=== PATIENT | male | born 1965 | race Caucasian/White ===

== ENCOUNTER 2017-01-08 15:42 | Inpatient (IN) | payer OTHER ==
[2017-01-08] MEDS ORDERED: SODIUM CHLORIDE 0.9% 500 ML IV STA (16:15)
--- NOTE | 2017-01-08 16:24 | ED ---
Abdominal Pain HPI - General Chief Complaint: Abdominal Pain Stated Complaint: ABdomnial pain x 2 weeks Time Seen by Provider: 01/08/17 16:05 Source: patient, RN notes reviewed Mode of arrival: ambulatory Limitations: no limitations - History of Present Illness Initial Comments: 51-year-old male presents emergency Department chief complaint of intermittent right lower quadrant abdominal pain for last month. Patient states Merrick getting worse. Patient states he has a history kidney stones and felt similar but states he does not have back pain associated with it. Patient denies any nausea, vomiting diarrhea constipation or dysuria no hematuria. Denies any known fever but states he still hot and cold. Patient states pain does wax and wane he's had no prior abdominal surgeries no groin swelling no scrotal swelling. Patient states he does have some increased pain with movement. But denies any known injury. - Related Data Home Medications Medication Instructions Recorded Confirmed No Known Home Medications [No 01/08/17 01/08/17 Known Home Medications] Allergies Allergy/AdvReac Type Severity Reaction Status Date / Time No Known Allergies Allergy Verified 01/08/17 16:39 Review of Systems ROS Statement: Those systems with pertinent positive or pertinent negative responses have been documented in the HPI. ROS Other: All systems not noted in ROS Statement are negative. Past Medical History Past Medical History: No Reported History History of Any Multi-Drug Resistant Organisms: None Reported Past Surgical History: No Surgical Hx Reported Past Psychological History: No Psychological Hx Reported Smoking Status: Never smoker Past Alcohol Use History: None Reported Past Drug Use History: Marijuana General Exam Limitations: no limitations General appearance: alert, in no apparent distress Head exam: Present: atraumatic, normocephalic, normal inspection Eye exam: Present: normal appearance, PERRL, EOMI. Absent: scleral icterus, conjunctival injection, periorbital swelling Neck exam: Present: normal inspection, full ROM. Absent: tenderness, meningismus, lymphadenopathy Respiratory exam: Present: normal lung sounds bilaterally. Absent: respiratory distress, wheezes, rales, rhonchi, stridor Cardiovascular Exam: Present: regular rate, normal rhythm, normal heart sounds. Absent: systolic murmur, diastolic murmur, rubs, gallop, clicks GI/Abdominal exam: Present: soft, tenderness ([id number] right lower quadrant tenderness), normal bowel sounds. Absent: distended, guarding, rebound , rigid Back exam: Absent: CVA tenderness (R), CVA tenderness (L) Skin exam: Present: warm, dry, intact, normal color. Absent: rash Course Vital Signs 01/08/17 15:59 Temperature 97.0 F L Pulse Rate 100 Respiratory 18 Rate Blood Pressure 119/86 O2 Sat by Pulse 100 Oximetry Medical Decision Making - Lab Data Result diagrams: 01/08/17 16:28 01/08/17 16:28 Lab Results 01/08/17 01/08/17 01/08/17 Range/Units 16:28 16:28 16:28 WBC 10.9 H (3.8-10.6) k/uL RBC 5.30 (4.30-5.90) m/uL Hgb 15.8 (13.0-17.5) gm/dL Hct 48.5 (39.0-53.0) % MCV 91.6 (80.0-100.0) fL MCH 29.9 (25.0-35.0) pg MCHC 32.6 (31.0-37.0) g/dL RDW 14.2 (11.5-15.5) % Plt Count 378 (150-450) k/uL Neutrophils % 74 % Lymphocytes % 20 % Monocytes % 4 % Eosinophils % 1 % Basophils % 0 % Neutrophils # 8.0 H (1.3-7.7) k/uL Lymphocytes # 2.2 (1.0-4.8) k/uL Monocytes # 0.4 (0-1.0) k/uL Eosinophils # 0.1 (0-0.7) k/uL Basophils # 0.1 (0-0.2) k/uL Sodium 143 (137-145) mmol/L Potassium 4.3 (3.5-5.1) mmol/L Chloride 102 (98-107) mmol/L Carbon Dioxide 30 (22-30) mmol/L Anion Gap 11 mmol/L BUN 14 (9-20) mg/dL Creatinine 0.82 (0.66-1.25) mg/dL Est GFR (MDRD) Af Amer >60 (>60 ml/min/1.73 sqM) Est GFR (MDRD) Non-Af >60 (>60 ml/min/1.73 sqM) Glucose 80 (74-99) mg/dL Calcium 9.4 (8.4-10.2) mg/dL Total Bilirubin 1.0 (0.2-1.3) mg/dL AST 30 (17-59) U/L ALT 56 (21-72) U/L Alkaline Phosphatase 78 (38-126) U/L Total Protein 7.8 (6.3-8.2) g/dL Albumin 4.6 (3.5-5.0) g/dL Amylase 36 (30-110) U/L Lipase 236 (23-300) U/L Urine Color Yellow Urine Appearance Clear (Clear) Urine pH 6.0 (5.0-8.0) Ur Specific Ruth 1.012 (1.001-1.035) Urine Protein Negative (Negative) Urine Glucose (UA) Negative (Negative) Urine Ketones Negative (Negative) Urine Blood Negative (Negative) Urine Nitrite Negative (Negative) Urine Bilirubin Negative (Negative) Urine Urobilinogen <2.0 (<2.0) mg/dL Ur Leukocyte Esterase Negative (Negative) Disposition Clinical Impression: Acute appendicitis Disposition: ADMITTED IP TO THIS [facility] Condition: Fair Referrals: Chuy Garza DO [Primary Care Provider] - 1-2 days
[2017-01-08 16:38] LABS: Basophils # (A) 0.1 k/uL (0-0.2); Basophils % (A) 0 %; CH 31.3; CHCM 34.3; Eosinophils # (A) 0.1 k/uL (0-0.7); Eosinophils % (A) 1 %; HCT 48.5 % (39.0-53.0); HGB 15.8 gm/dL (13.0-17.5); Luc # (Auto) 0.16; Luc % (Auto) 1; Lymphocytes # (A) 2.2 k/uL (1.0-4.8); Lymphocytes % (A) 20 %; MCH 29.9 pg (25.0-35.0); MCHC 32.6 g/dL (31.0-37.0); MCV 91.6 fL (80.0-100.0); Mean Platelet Volume 7.4; Monocytes # (A) 0.4 k/uL (0-1.0); Monocytes % (A) 4 %; Neutrophils % (A) 74 %; RDW 14.2 % (11.5-15.5); WBC 10.9 k/uL (3.8-10.6); WBC (Perox) 10.42
[2017-01-08 16:39] LABS: Appearance,Urine Clear (Clear); Bilirubin,Urine Negative (Negative); Glucose,Urine (UA) Negative (Negative); Ketones,Urine Negative (Negative); Leukocyte Esterase,Urine Negative (Negative); Nitrite,Urine Negative (Negative); Protein,Urine Negative (Negative); Specific Gravity,Urine 1.012 (1.001-1.035); UA Billing (MACRO vs. MICRO) CHEM; Urobilinogen,Urine <2.0 mg/dL (<2.0)
[2017-01-08 16:46] LABS: ALT 56 U/L (21-72); AST 30 U/L (17-59); Alkaline Phosphatase 78 U/L (38-126); Amylase 36 U/L (30-110); Anion Gap 11 mmol/L; Blood Urea Nitrogen 14 mg/dL (9-20); Calcium 9.4 mg/dL (8.4-10.2); Carbon Dioxide 30 mmol/L (22-30); Chloride 102 mmol/L (98-107); Glucose 80 mg/dL (74-99); Non-African American GFR(MDRD) >60 (>60 ml/min/1.73 sqM); Potassium 4.3 mmol/L (3.5-5.1); Sodium 143 mmol/L (137-145); Total Protein 7.8 g/dL (6.3-8.2)
--- NOTE | 2017-01-08 17:02 | XR ---
Abdomen HISTORY: Pain Frontal view of the abdomen submitted on 2 images and correlated to prior abdomen 07/02/2013 Lung bases are clear. There is no pneumoperitoneum or bowel obstruction. Phleboliths present within t he pelvis. Difficult to exclude nephrolithiasis. IMPRESSION: Nonspecific bowel gas pattern
[2017-01-08] MEDS ORDERED: RX INFO: IV CONTRAST WAS GIVEN 1 EACH MISC MISCELLANE PRN (17:03)
--- NOTE | 2017-01-08 17:52 | CT ---
EXAMINATION TYPE: CT abdomen pelvis w con DATE OF EXAM: 01/08/2017 COMPARISON: 07/02/2013 HISTORY: Right lower quadrant pain on and off x [address] DLP: 786.00 mGycm Automated exposure control for dose reduction was used. TECHNIQUE: Helical acquisition of images was performed from the lung bases through the pelvis. CONTRAST: Performed without Oral Contrast and with IV Contrast, patient injected with 100 mL of Omnipaque 300. FINDINGS: LUNG BASES: Bibasilar subsegmental atelectasis is present. LIVER/GB: Peripherally enhancing incompletely characterized left hepatic lobe lesion measures 1.2 cm on series 3 image 14. Additional lesions that are too small to accurately characterize are seen withi n segment 4A on series 3 image 18 and series 3 image 21 measuring 4 mm and 5 mm respectively. Other s cattered similar appearing hypoattenuating lesions are seen within segments 5, 6 and 8 that are also too small to accurately characterize. These may represent hepatic cysts. PANCREAS: No significant abnormality is seen. SPLEEN: No significant abnormality is seen. ADRENALS: No significant abnormality is seen. KIDNEYS: Bilateral subcentimeter hypoattenuating lesions are too small to accurately characterize see n in the left lower pole and right midpole. FREE AIR: No free air is visualized. RETROPERITONEAL ADENOPATHY: None visualized REPRODUCTIVE ORGANS: No significant abnormality is seen URINARY BLADDER: No significant abnormality is seen. PELVIC ADENOPATHY: None visualized. OSSEOUS STRUCTURES: Indeterminant lesion is seen within the iliac crest on the left that is favored to be benign as it was present on the prior exam of 07/02/2013.. BOWEL: Extensive phlegmonous changes are seen in the right lower quadrant near the appendix and term inal ileum. Multiple loops of small bowel are acute to one another and thus the appendix is inseparab le. The appendix is thought to be located on series 3 image 52, upper limits of normal in size measur ing 7 mm and hyperemia with extensive periappendiceal fat stranding. Bowel loops appear to be tethere d to one another with separation of the unaffected bowel, enlarged adjacent lymph nodes measuring up to 6 mm, and thickening of the adjacent fascial planes. No associated ileus is seen as is no proximal bowel dilation.. OTHER: IMPRESSION: 1. EXTENSIVE PHLEGMONOUS AND INFLAMMATORY FAT STRANDING IN THE RIGHT LOWER QUADRANT WITH MULTIPLE LOO PS OF HYPEREMIC BOWEL ADHERED TO ONE ANOTHER, ALTHOUGH THE APPENDIX CANNOT BE FROM THE TERM INAL ILEUM AND SURROUNDING ADJACENT BOWEL LOOPS ACUTE APPENDICITIS IS HIGHLY SUSPECTED WITH REACTIVE TERMINAL ILEITIS AND ADJACENT ADENOPATHY NO EVIDENCE OF FOCAL FLUID COLLECTION. 2. NUMEROUS HEPATIC LESIONS THAT ARE INCOMPLETELY CHARACTERIZED. THESE COULD REPRESENT HEMANGIOMAS AN D OR HEPATIC CYST ALTHOUGH FURTHER CHARACTERIZATION WITH ENHANCED DYNAMIC CT OR MR ABDOMEN COULD BE P ERFORMED FOR FURTHER CHARACTERIZATION. FINDINGS WERE DISCUSSED WITH Amadeo Ruvalcaba PA-C by Dr. Gomez at 1744 ON 01/08/2017.
[2017-01-08] MEDS ORDERED: PIPERACILLIN-TAZOBACTAM 3.375 GM in DEXTROSE/WATER 1 50ML.BAG IVPB STA (17:56)
[2017-01-08] MEDS ORDERED: NALOXONE 0.4 MG/ML 1 ML VIAL IV PRN (17:58)
[2017-01-08] MEDS: SODIUM CHLORIDE 0.9% 1,000 ML IV SCH (18:06)
[2017-01-08 20:22] VITALS: BMI 24.2
--- NOTE | 2017-01-08 23:10 | P.GSHP ---
History of Present Illness H&P Date: 01/08/17 Chief Complaint: Right lower quadrant abdominal pain The patient is a 51-year-old gentleman who reports several month history of intermittent abdominal cramps including along the right lower quadrant. He denies any previous colonoscopies. He denies any family history of colon cancer malignancy. No previous abdominal surgeries. He thought he had the stomach flu. His pain had initially started periumbilical and radiated to the right lower quadrant since Sunday now 2-3 days ago. He is sitting comfortably in the hospital room. He denies any personal or family history of Crohn's disease or ulcerative colitis. He denies any blood in the stools. He did obtain a CT of the abdomen and pelvis consistent with inflammatory change of the right lower quadrant and acute appendicitis. - Review of Systems Comment: CONSTITUTIONAL: Denies any fever or chills. Denies recent weight loss or weight gain. HEENT: Denies any trouble with vision, hearing or nosebleeds. No difficulty swallowing. LYMPHATIC: The patient denies any lumps and bumps around the neck. ENDOCRINE: Denies any thyroid disorders. Denies any blood sugar glucose intolerance. RESPIRATORY: Denies pneumonia. Denies any troubles with breathing or dyspnea on exertion. CARDIOVASCULAR: Denies any chest pain, palpitations, or recent heart attacks. He completed a stress test in the last 4-6 months which was normal. GASTROINTESTINAL: Denies heart burn, constipation or bright red blood per rectum. GENITOURINARY: Denies any blood in urine or increased urinary frequency. MUSCULOSKELETAL: Has occasional back pain, stiffness, joint arthritis. NEUROLOGIC: Denies any numbness or tingling along the distal extremities. No seizure disorders or headaches. PSYCHIATRIC: Denies depression or suidical ideation. HEMATOLOGIC: Denies any abnormal bleeding or bruising. BREASTS: Denies any breast lumps, pain or nipple discharge. SKIN: No reports of skin cancer or rash. Past Medical History Past Medical History: No Reported History History of Any Multi-Drug Resistant Organisms: None Reported Past Surgical History: No Surgical Hx Reported Past Anesthesia/Blood Transfusion Reactions: No Reported Reaction Additional Past Anesthesia/Blood Transfusion Reaction / Comment(s): pt never had surgery or been on anesthesia Past Psychological History: No Psychological Hx Reported Smoking Status: Never smoker Past Alcohol Use History: None Reported Past Drug Use History: Marijuana Medications and Allergies Home Medications Medication Instructions Recorded Confirmed Type No Known Home Medications [No 01/08/17 01/08/17 History Known Home Medications] Allergies Allergy/AdvReac Type Severity Reaction Status Date / Time No Known Allergies Allergy Verified 01/08/17 16:39 Surgical - Exam Vital Signs Temp Pulse Resp BP Pulse Ox 97.0 F L 100 18 119/86 100 01/08/17 15:59 01/08/17 15:59 01/08/17 15:59 01/08/17 15:59 01/08/17 15:59 GENERAL: Well developed and in no acute distress. Pleasant. HEENT: No sclera icterus. Extraocular movements grossly intact. Moist buccal mucosa. Head is atraumatic, normocephalic. Hears conversational speech. No nasal drainage. NECK: Supple without lymphadenopathy. No JV distention. CHEST: Non-labored respirations and equal bilateral excursions. CARDIOVASCULAR: Regular rate and rhythm. Palpable 2+ radial pulses. ABDOMEN: Soft. Tender along the right lower quadrant. No peritonitis. MUSCULOSKELETAL: No clubbing, cyanosis or edema. NEUROLOGIC: No focal or lateralizing signs. PSYCH: Appropriate affect. Alert and oriented to person, place and time. BREAST: There are no palpable lesions along the bilateral breasts. No axillary adenopathy. SKIN: Good skin turgor. Well perfused. Results - Labs 01/08/17 16:28 01/08/17 16:28 Abnormal Lab Results - Last 24 Hours (Table) 01/08/17 Range/Units 16:28 WBC 10.9 H (3.8-10.6) k/uL Neutrophils # 8.0 H (1.3-7.7) k/uL Diabetes panel 01/08/17 Range/Units 16:28 Sodium 143 (137-145) mmol/L Potassium 4.3 (3.5-5.1) mmol/L Chloride 102 (98-107) mmol/L Carbon Dioxide 30 (22-30) mmol/L BUN 14 (9-20) mg/dL Creatinine 0.82 (0.66-1.25) mg/dL Glucose 80 (74-99) mg/dL Calcium 9.4 (8.4-10.2) mg/dL AST 30 (17-59) U/L ALT 56 (21-72) U/L Alkaline Phosphatase 78 (38-126) U/L Total Protein 7.8 (6.3-8.2) g/dL Albumin 4.6 (3.5-5.0) g/dL Calcium panel 01/08/17 Range/Units 16:28 Calcium 9.4 (8.4-10.2) mg/dL Albumin 4.6 (3.5-5.0) g/dL Pituitary panel 01/08/17 Range/Units 16:28 Sodium 143 (137-145) mmol/L Potassium 4.3 (3.5-5.1) mmol/L Chloride 102 (98-107) mmol/L Carbon Dioxide 30 (22-30) mmol/L BUN 14 (9-20) mg/dL Creatinine 0.82 (0.66-1.25) mg/dL Glucose 80 (74-99) mg/dL Calcium 9.4 (8.4-10.2) mg/dL Adrenal panel 01/08/17 Range/Units 16:28 Sodium 143 (137-145) mmol/L Potassium 4.3 (3.5-5.1) mmol/L Chloride 102 (98-107) mmol/L Carbon Dioxide 30 (22-30) mmol/L BUN 14 (9-20) mg/dL Creatinine 0.82 (0.66-1.25) mg/dL Glucose 80 (74-99) mg/dL Calcium 9.4 (8.4-10.2) mg/dL Total Bilirubin 1.0 (0.2-1.3) mg/dL AST 30 (17-59) U/L ALT 56 (21-72) U/L Alkaline Phosphatase 78 (38-126) U/L Total Protein 7.8 (6.3-8.2) g/dL Albumin 4.6 (3.5-5.0) g/dL - Imaging CT scan - abdomen: report reviewed, image reviewed CT scan - pelvis: report reviewed, image reviewed (Studies were reviewed by me with no definite appendix identified. Inflammation of the right lower quadrant was confirmed. No signs of bowel obstruction.) Assessment and Plan (1) Leukocytosis Status: Acute (2) Right lower quadrant pain Status: Acute (3) Acute appendicitis Status: Acute Plan: 1. Laparoscopic appendectomy was described in detail. Diagnostic laparoscopy will be performed. 2. DVT prophylaxis. 3. IV antibiotics. 4. Recommend outpatient colonoscopy after complete recovery.
[2017-01-09] MEDS ORDERED: PIPERACILLIN-TAZOBACTAM 3.375 GM in DEXTROSE/WATER 1 50ML.BAG IVPB SCH
[2017-01-09] MEDS: AMPICILLIN-SULBACTAM 3 GM in SODIUM CHLORIDE 0.9% 100 ML IVPB SCH ×4 (00:19→23:54)
[2017-01-09] MEDS: SODIUM CHLORIDE 0.9% 1,000 ML IV SCH ×2 (05:16→14:17)
[2017-01-09] MEDS ORDERED: ACETAMINOPHEN IVPB ONE (08:05)
[2017-01-09] MEDS ORDERED: ceFAZolin 2 GM in SODIUM CHLORIDE 0.9% 100 ML IVPB ONE (08:05)
[2017-01-09] MEDS ORDERED: HEPARIN SODIUM,PORCINE 5,000 UNIT/ML 1 ML VIAL SQ ONE (08:05)
--- NOTE | 2017-01-09 08:05 | P.HPADDEND ---
H&P Addendum H&P Addendum Date: 01/09/17 Patient has history of abdominal pain for several months however the last 2-3 days he has periumbilical pain radiating to the right lower quadrant. CT of the abdomen and pelvis consistent with acute appendicitis. We'll proceed with laparoscopic appendectomy including diagnostic laparoscopy.
[2017-01-09] MEDS ORDERED: MIDAZOLAM 2 MG/2 ML VIAL IVP ONE (09:50)
[2017-01-09] MEDS ORDERED: IV FLUID CONTINUATION 700 ML IV ONE (09:54)
[2017-01-09] MEDS: ONDANSETRON 4 MG/2 ML VIAL IVP PRN (09:54)
[2017-01-09] MEDS ORDERED: SUCCINYLCHOLINE CHLORIDE 100 MG/5 ML SYR IV ONE (11:39)
[2017-01-09] MEDS ORDERED: GLYCOPYRROLATE 0.2 MG/ML 2 ML VIAL ONE (11:39)
[2017-01-09] MEDS ORDERED: fentaNYL (PF) 50 MCG/ML 2 ML AMP ONE (11:39)
[2017-01-09] MEDS ORDERED: ROCURONIUM BROMIDE 10 MG/ML 10 ML VIAL IV ONE (11:39)
[2017-01-09] MEDS ORDERED: PROPOFOL 10 MG/ML 20 ML VIAL IV ONE (11:39)
[2017-01-09] MEDS ORDERED: KETOROLAC 30 MG/ML 1 ML VIAL ONE (11:39)
[2017-01-09] MEDS ORDERED: NEOSTIGMINE 1 MG/ML 10 ML VIAL ONE (11:39)
[2017-01-09] MEDS ORDERED: MIDAZOLAM 2 MG/2 ML VIAL ONE (11:39)
[2017-01-09] MEDS ORDERED: LIDOCAINE 1% INJ 10MG/ML (20 ML MDV) ONE (11:39)
[2017-01-09] MEDS ORDERED: BUPIVACAIN-EPI 0.5%-1:200,000 30 ML VIAL SQ ONE ×2 (12:15)
[2017-01-09] MEDS ORDERED: LACTATED RINGERS 1,000 ML IV ONE (12:54)
--- NOTE | 2017-01-09 13:04 | P.PCN ---
Date of Procedure: 01/09/17 Preoperative Diagnosis: Right lower quadrant abdominal pain, possible appendicitis Postoperative Diagnosis: Contained Intra-abdominal abscess right lower quadrant, phlegmon right lower quadrant Procedure(s) Performed: Diagnostic laparoscopy, drainage of intra-abdominal abscess right lower quadrant , placement of round #19 drain right lower quadrant, Implants: Anesthesia: GETA, local Surgeon: Guillermina Nielson Pathology: other (Aerobic and anaerobic cultures, peritoneal fluid cell cytology ) Condition: stable Disposition: floor Indications for Procedure: Operative Findings: 1. Phlegmon involving the right lower quadrant with involvement of distal small bowel localized ileus. 2. Intra-abdominal contained abscess of the right lower quadrant without visualization of the appendix. 3. Phlegmon involving the cecum and external ascending colon highly suspicious for malignancy. 4. Aerobic and anaerobic cultures including cell cytology obtained for evaluation for malignancy. 5. Recommend colonoscopy for workup of malignancy. Description of Procedure:
[2017-01-09] MEDS: MORPHINE SULFATE 4 MG/ML SYRINGE IV PRN ×3 (14:17→22:11)
--- NOTE | 2017-01-09 22:45 | P.PN ---
Progress Note - Text Patient seen and reevaluated this evening. He reports increased abdominal soreness. Intraoperative findings including contained intra-abdominal abscess along the right lower quadrant was described. Involvement of the base of the ascending colon including cecum was described. Risk of malignancy is present. I reviewed with him that we will proceed with infectious disease consultation. Additionally, he will need a full colonoscopy evaluation to exclude underlying malignancy. Otherwise recommend prolonged antibiotic for contained intra-abdominal abscess. May need appendectomy in the case of interval perforated appendicitis versus right hemicolectomy for potential appendiceal or colon cancer.
[2017-01-10] MEDS: SODIUM CHLORIDE 0.9% 1,000 ML IV SCH ×3 (00:04→16:27)
[2017-01-10] MEDS: MORPHINE SULFATE 4 MG/ML SYRINGE IV PRN ×2 (04:34→11:32)
[2017-01-10] MEDS: HYDROcodone/APAP 5-325MG 1 EACH TAB PO PRN (08:03)
[2017-01-10] MEDS: AMPICILLIN-SULBACTAM 3 GM in SODIUM CHLORIDE 0.9% 100 ML IVPB SCH ×2 (08:03→16:28)
[2017-01-10 08:44] LABS: ALT 34 U/L (21-72); AST 22 U/L (17-59); Alkaline Phosphatase 57 U/L (38-126); Anion Gap 10 mmol/L; Blood Urea Nitrogen 8 mg/dL (9-20); Calcium 8.6 mg/dL (8.4-10.2); Carbon Dioxide 22 mmol/L (22-30); Chloride 107 mmol/L (98-107); Glucose 92 mg/dL (74-99); Magnesium 1.9 mg/dL (1.6-2.3); Non-African American GFR(MDRD) >60 (>60 ml/min/1.73 sqM); Phosphorous 3.2 mg/dL (2.5-4.5); Potassium 4.4 mmol/L (3.5-5.1); Sodium 139 mmol/L (137-145); Total Bilirubin 1.4 mg/dL (0.2-1.3); Total Protein 6.2 g/dL (6.3-8.2)
[2017-01-10 09:28] LABS: Basophils % (A) 0 %; CH 30.5; CHCM 33.7; Eosinophils # (A) 0.1 k/uL (0-0.7); Eosinophils % (A) 1 %; HCT 42.8 % (39.0-53.0); HDW 2.65; HGB 14.5 gm/dL (13.0-17.5); Luc # (Auto) 0.12; Luc % (Auto) 1; Lymphocytes # (A) 1.6 k/uL (1.0-4.8); Lymphocytes % (A) 14 %; MCH 30.7 pg (25.0-35.0); MCHC 33.9 g/dL (31.0-37.0); MCV 90.7 fL (80.0-100.0); Mean Platelet Volume 8.1; Monocytes # (A) 0.5 k/uL (0-1.0); Monocytes % (A) 4 %; Neutrophils # (A) 9.4 k/uL (1.3-7.7); Neutrophils % (A) 80 %; RBC 4.72 m/uL (4.30-5.90); WBC 11.7 k/uL (3.8-10.6); WBC (Perox) 12.13
[2017-01-10] MEDS: ONDANSETRON 4 MG/2 ML VIAL IVP PRN (11:27)
--- NOTE | 2017-01-10 12:24 | P.PN ---
Subjective 51-year-old male being seen on rounds this morning currently resting in bed. Patient states "it hurts when I move" patient reports a nausea sensation no active emesis. The plan of care was discussed with the patient. Patient will need an infectious disease consultation. Outpatient colonoscopy evaluation in 4 -6 weeks to exclude any underlying malignancy Patient gives a history of having for the past several months intermittent abdominal pain described as a cramping sensation along the right lower quadrant. Patient has had no prior colonoscopies done. There is no family history of colon cancer. Patient has no past surgical history. Patient had a CAT scan of the abdomen pelvis was consistent with inflammatory changes along the right lower quadrant Patient is postop January 09 diagnostic laparoscopy, drainage of an intra- abdominal abscess right lower quadrant and a placement of a Chinedu-Luong drain right lower quadrant for containment intra-abdominal abscess right lower quadrant,phlegmon right lower quadrant. The intraoperative findings include contained intra-abdominal abscess along the right lower quadrant. Involvement of the base of the ascending colon including cecum was described. Concern for risk of malignancy Objective - Vital Signs Vital signs: Vital Signs Temp 98.2 F 01/10/17 07:00 Pulse 89 01/10/17 08:00 Resp 16 01/10/17 08:00 BP 119/68 01/10/17 07:00 Pulse Ox 97 01/10/17 07:00 Intake & Output 01/09/17 01/10/17 01/10/17 18:59 06:59 18:59 Intake Total 2049 1232 Output Total 25 620 Balance 2024 61 Weight 52.617 kg 52.617 kg Intake: IV 1150 Intake, IV Titration 900 912 Amount Ampicillin-Sulbactam 3 gm 100 In Sodium Chloride 0.9% 100 ml @ 100 mls/hr IVPB Q8HR YAZMIN Rx#:[id number] Sodium Chloride 0.9% 1, 900 812 000 ml @ 100 mls/hr IV . Q10H YAZMIN Rx#:[id number] Oral 320 Output: Drainage 60 Anterior Abdomen 60 Urine 560 Estimated Blood Loss 25 Other: # Voids 1 1 - Exam Physical exam 51-year-old male resting in bed pleasant cooperative oriented 3 reports having abdominal surgical pain Lungs essentially clear adequate air movement on room air sats greater than 95% Heart S1-S2 audible regular Abdomen surgical dressing dry Chinedu-Luong drain in place approximately 80 mL in the bulb serous drainage hypoactive bowel tones noted reports a nausea sensation no active emesis urinating no difficulty no stool tolerating clear liquids Extremities no edema noted - Labs CBC & Chem 7: 01/10/17 07:50 01/10/17 07:50 Labs: Abnormal Lab Results - Last 24 Hours (Table) 01/10/17 01/10/17 Range/Units 07:50 07:50 WBC 11.7 H (3.8-10.6) k/uL Neutrophils # 9.4 H (1.3-7.7) k/uL BUN 8 L (9-20) mg/dL Total Bilirubin 1.4 H (0.2-1.3) mg/dL Total Protein 6.2 L (6.3-8.2) g/dL Microbiology - Last 24 Hours (Table) 01/09/17 12:30 Gram Stain - Preliminary Abdomen Wound Culture - Preliminary Gram Neg Bacilli 01/09/17 12:30 Anaerobic Culture - Preliminary Abdomen Assessment and Plan Plan: Impression Present on admission intermittent abdominal pain along the right lower quadrant onset past several months suspect due to right lower quadrant abscess Diagnostic laparoscopy, drainage of intra-abdominal abscess right lower quadrant , placement of round #19 drain right lower quadrant, done on January 09 Operative findings Phlegmon involving the right lower quadrant with involvement of distal small bowel localized ileus. Operative findings Intra-abdominal contained abscess of the right lower quadrant without visualization of the appendix. Operative findings. Phlegmon involving the cecum and external ascending colon highly suspicious for malignancy. Plan Infectious disease consultation pending Continue postop surgical care Increase activity Will need an outpatient colonoscopy after complete recovery anticipate next 4-6 weeks Pain control DVT and GI prophylaxis Further recommendations pending Clear liquid diet The above impression and plan of care have been discussed and directed by signing physician. Yaima Kate nurse practitioner acting as scribe for signing physician.
[2017-01-10] MEDS ORDERED: MORPHINE SULFATE 2 MG/ML SYRINGE IV PRN (12:25)
--- NOTE | 2017-01-10 15:43 | P.CONS ---
History of Present Illness - Reason for Consult Consult date: 01/10/17 abdominal abscess, antibiotic recommendations - History of Present Illness This is a 51-year-old male who gives history that he started having right lower quadrant pain about one month ago and he continued to get worse. It was only intermittent and came and went. He denies any back pain, no nausea or vomiting, no diarrhea or constipation. The pain continued to worsen and he came into [facility] emergency center on January 08. His white count was 10.9. CAT scan of the abdomen and pelvis showed extensive phlegmon 06 and inflammatory fat stranding in the right lower quadrant with multiple loops of hyperemic bowel adhered to one another. Appendix cannot be from the terminal ileum and surrounding adjacent bowel loops, acute appendicitis is highly suspected with reactive terminal ileitis and adjacent adenopathy. Patient was started on Unasyn and admitted to the [facility]. On January 09 he underwent a diagnostic laparoscopic, drainage of intra-abdominal abscess right lower quadrant and placement of drain with Dr. Hirsch. Operative findings were phlegmon involving the right lower quadrant with involvement of the distal small bowel localized ileus, intra-abdominal contained abscess right lower quadrant without visualization of the appendix, phlegmon involving the cecum and external descending colon highly suspicious for malignancy. Cultures were obtained and are in progress. Aerobic culture showing no organisms and a few WBCs. Dr. Nielson is planning on antibiotics and outpatient colonoscopy in 4-6 weeks. Patient is on clear liquid diet. Patient denies having any nausea, vomiting, diarrhea he denies fever or chills. He does complain of a decreased appetite but it seems to be pain related. He denies any weight loss. Patient states he does not feel any better at this time. Pain seems to be aggravated with movement and now he also has pain on the left side of his abdomen as well.. Review of Systems All systems: negative Constitutional: Denies chills, Denies fever Eyes: denies blurred vision, denies pain Ears, nose, mouth and throat: Denies headache, Denies sore throat Cardiovascular: Denies chest pain, Denies shortness of breath Respiratory: Denies cough Gastrointestinal: Reports abdominal pain, Denies diarrhea, Denies nausea, Denies vomiting Musculoskeletal: Denies myalgias Integumentary: Denies pruritus, Denies rash Neurological: Denies numbness, Denies weakness Psychiatric: Denies anxiety, Denies depression Endocrine: Denies fatigue, Denies weight change Past Medical History Past Medical History: No Reported History History of Any Multi-Drug Resistant Organisms: None Reported Past Surgical History: No Surgical Hx Reported Past Anesthesia/Blood Transfusion Reactions: No Reported Reaction Additional Past Anesthesia/Blood Transfusion Reaction / Comm: pt never had surgery or been on anesthesia Past Psychological History: No Psychological Hx Reported Smoking Status: Never smoker Past Alcohol Use History: None Reported Additional Past Alcohol Use History / Comment(s): Patient is a lifelong nonsmoker. He states he smokes marijuana daily for his arthritis. He denies any other street drug use. He denies any alcohol use. He lives at home with his , 3 cats and one rabbit. He does collision work. Past Drug Use History: Marijuana Medications and Allergies Home Medications Medication Instructions Recorded Confirmed Type No Known Home Medications [No 01/08/17 01/08/17 History Known Home Medications] Allergies Allergy/AdvReac Type Severity Reaction Status Date / Time No Known Allergies Allergy Verified 01/08/17 16:39 Physical Exam Vitals: Vital Signs Temp Pulse Resp BP Pulse Ox 01/10/17 08:00 89 16 01/10/17 00:00 89 16 01/09/17 20:45 98.4 F 89 16 118/75 98 01/09/17 16:00 69 18 01/09/17 15:00 97 F L 66 16 121/73 100 01/09/17 14:30 69 18 116/64 100 01/09/17 14:00 100 18 121/73 100 01/09/17 13:30 66 16 115/78 100 01/09/17 13:15 81 16 115/71 100 01/09/17 13:05 98.9 F 63 16 118/73 01/09/17 09:50 98.3 F 18 144/82 98 Intake and Output 01/09/17 01/10/17 01/10/17 22:59 06:59 14:59 Intake Total 320 912 Output Total 620 Balance 320 292 Intake: Intake, IV Titration 912 Amount Ampicillin-Sulbactam 3 gm 100 In Sodium Chloride 0.9% 100 ml @ 100 mls/hr IVPB Q8HR [facility] Rx#:[id number] Sodium Chloride 0.9% 1, 812 000 ml @ 100 mls/hr IV . Q10H [facility] Rx#:[id number] Oral 320 Output: Drainage 60 Anterior Abdomen 60 Urine 560 Other: # Voids 1 Weight 52.617 kg 52.617 kg Patient Weight 01/11/17 06:59 Weight 52.617 kg Gen: This is a 51-year-old male sitting up in bed and appears to be comfortable. HEENT: Head is atraumatic, normocephalic. Pupils equal, round. Sclerae is anicteric. Oral mucous members of the mouth are slightly dry. Dentition is in poor order. No lesions noted. NECK: Supple. No JVD. No lymphadenopathy. No thyromegaly. LUNGS: Clear to auscultation. No wheezes or rhonchi. No intercostal retractions. HEART: Regular rate and rhythm. No murmur. ABDOMEN: Soft. Bowel sounds are present. No masses. ALBIN drain to the right lower abdomen with serosanguineous fluid. Generalized tenderness. EXTREMITIES: No pedal edema. No calf tenderness. Dorsalis pedis is +2 bilaterally. NEUROLOGICAL: Patient is awake, alert and oriented x3. Cranial nerves 2 through 12 are grossly intact. Results Results: Laboratory Results WBC 11.7 k/uL (3.8-10.6) H 01/10/17 07:50 RBC 4.72 m/uL (4.30-5.90) 01/10/17 07:50 Hgb 14.5 gm/dL (13.0-17.5) 01/10/17 07:50 Hct 42.8 % (39.0-53.0) 01/10/17 07:50 MCV 90.7 fL (80.0-100.0) 01/10/17 07:50 MCH 30.7 pg (25.0-35.0) 01/10/17 07:50 MCHC 33.9 g/dL (31.0-37.0) 01/10/17 07:50 RDW 13.0 % (11.5-15.5) 01/10/17 07:50 Plt Count 308 k/uL (150-450) 01/10/17 07:50 Neutrophils % 80 % 01/10/17 07:50 Lymphocytes % 14 % 01/10/17 07:50 Monocytes % 4 % 01/10/17 07:50 Eosinophils % 1 % 01/10/17 07:50 Basophils % 0 % 01/10/17 07:50 Neutrophils # 9.4 k/uL (1.3-7.7) H 01/10/17 07:50 Lymphocytes # 1.6 k/uL (1.0-4.8) 01/10/17 07:50 Monocytes # 0.5 k/uL (0-1.0) 01/10/17 07:50 Eosinophils # 0.1 k/uL (0-0.7) 01/10/17 07:50 Basophils # 0.0 k/uL (0-0.2) 01/10/17 07:50 Sodium 139 mmol/L (137-145) 01/10/17 07:50 Potassium 4.4 mmol/L (3.5-5.1) 01/10/17 07:50 Chloride 107 mmol/L (98-107) 01/10/17 07:50 Carbon Dioxide 22 mmol/L (22-30) 01/10/17 07:50 Anion Gap 10 mmol/L 01/10/17 07:50 BUN 8 mg/dL (9-20) L 01/10/17 07:50 Creatinine 0.73 mg/dL (0.66-1.25) 01/10/17 07:50 Est GFR (MDRD) Af Amer >60 (>60 ml/min/1.73 sqM) 01/10/17 07:50 Est GFR (MDRD) Non-Af >60 (>60 ml/min/1.73 sqM) 01/10/17 07:50 Glucose 92 mg/dL (74-99) 01/10/17 07:50 Calcium 8.6 mg/dL (8.4-10.2) 01/10/17 07:50 Phosphorus 3.2 mg/dL (2.5-4.5) 01/10/17 07:50 Magnesium 1.9 mg/dL (1.6-2.3) 01/10/17 07:50 Total Bilirubin 1.4 mg/dL (0.2-1.3) H 01/10/17 07:50 AST 22 U/L (17-59) 01/10/17 07:50 ALT 34 U/L (21-72) 01/10/17 07:50 Alkaline Phosphatase 57 U/L (38-126) 01/10/17 07:50 Total Protein 6.2 g/dL (6.3-8.2) L 01/10/17 07:50 Albumin 3.5 g/dL (3.5-5.0) 01/10/17 07:50 Amylase 36 U/L (30-110) 01/08/17 16:28 Lipase 236 U/L (23-300) 01/08/17 16:28 Urine Color Yellow 01/08/17 16:28 Urine Appearance Clear (Clear) 01/08/17 16:28 Urine pH 6.0 (5.0-8.0) 01/08/17 16:28 Ur Specific [place] 1.012 (1.001-1.035) 01/08/17 16:28 Urine Protein Negative (Negative) 01/08/17 16:28 Urine Glucose (UA) Negative (Negative) 01/08/17 16:28 Urine Ketones Negative (Negative) 01/08/17 16:28 Urine Blood Negative (Negative) 01/08/17 16:28 Urine Nitrite Negative (Negative) 01/08/17 16:28 Urine Bilirubin Negative (Negative) 01/08/17 16:28 Urine Urobilinogen <2.0 mg/dL (<2.0) 01/08/17 16:28 Ur Leukocyte Esterase Negative (Negative) 01/08/17 16:28 CBC & Chem 7: 01/10/17 07:50 01/10/17 07:50 Labs: Abnormal Lab Results - Last 24 Hours (Table) 01/10/17 Range/Units 07:50 BUN 8 L (9-20) mg/dL Total Bilirubin 1.4 H (0.2-1.3) mg/dL Total Protein 6.2 L (6.3-8.2) g/dL Microbiology - Last 24 Hours (Table) 01/09/17 12:30 Gram Stain - Preliminary Abdomen Wound Culture - Preliminary 01/09/17 12:30 Anaerobic Culture - Preliminary Abdomen Assessment and Plan Plan: This is a 51-year-old male who presented to the hospital with abdominal pain found to have intra-abdominal abscess and phlegmon status post surgical intervention with Dr. Alonso. Cultures are currently pending. He is on antibiotics in form of Unasyn. Continue supportive care. Further recommendations as patient progresses. The above dictated assessment and findings were discussed with Dr. Cunningham. The impression and plan of care have been directed as dictated. Giana Zuluaga nurse practitioner acting as scribe for Dr. Cunningham.
[2017-01-10] MEDS: FAMOTIDINE 20 MG TAB PO SCH (20:40)
--- NOTE | 2017-01-10 21:59 | P.CON ---
Consult Note - . Consult date: 01/10/17 Assessment/Plan:: This is a 51-year-old male who gives history that he started having right lower quadrant pain about one month ago and he continued to get worse. It was only intermittent and came and went. He denies any back pain, no nausea or vomiting, no diarrhea or constipation. The pain continued to worsen and he came into [facility] emergency center on January 08. His white count was 10.9. CAT scan of the abdomen and pelvis showed extensive phlegmon 06 and inflammatory fat stranding in the right lower quadrant with multiple loops of hyperemic bowel adhered to one another. Appendix cannot be from the terminal ileum and surrounding adjacent bowel loops, acute appendicitis is highly suspected with reactive terminal ileitis and adjacent adenopathy. Patient was started on Unasyn and admitted to the [facility]. On January 09 he underwent a diagnostic laparoscopic, drainage of intra-abdominal abscess right lower quadrant and placement of drain with Dr. Hirsch. Operative findings were phlegmon involving the right lower quadrant with involvement of the distal small bowel localized ileus, intra-abdominal contained abscess right lower quadrant without visualization of the appendix, phlegmon involving the cecum and external descending colon highly suspicious for malignancy. Cultures were obtained and are in progress. Aerobic culture showing no organisms and a few WBCs. Dr. Nielson is planning on antibiotics and outpatient colonoscopy in 4-6 weeks. Patient is on clear liquid diet. Patient denies having any nausea, vomiting, diarrhea he denies fever or chills. He does complain of a decreased appetite but it seems to be pain related. He denies any weight loss. Patient states he does not feel any better at this time. Pain seems to be aggravated with movement and now he also has pain on the left side of his abdomen as well. Please see the consult note is dictated by nurse practitioner Mrs. Giana Zuluaga. As noted patient has evidence of the extensive inflammatory process to the right lower quadrant that was drained laparoscopically. Does have the drain in place midline. It is noted has evidence of the extensive tenderness in the right lower quadrant. Is feeling better this evening. Is getting some appetite. Denying any other acute difficulties. He is very anxious and worried about his home life. He is counseled about FMLA, and will discuss this with the discharge team. Antibiotic therapy will be altered to Zosyn giving the data although gram- negative bacilli being seen concerns to pseudomonas. Once status available we can make a plan for his outpatient intravenous antibiotic therapy. I agree with evaluation, assessment and plan as dictated by nurse practitioner Mrs. Giana Zuluaga.
[2017-01-11] MEDS: PIPERACILLIN-TAZOBACTAM 3.375 GM in DEXTROSE/WATER 1 50ML.BAG IVPB SCH ×3 (01:17→18:04)
[2017-01-11] MEDS: SODIUM CHLORIDE 0.9% 1,000 ML IV SCH ×3 (07:46→18:07)
[2017-01-11] MEDS: FAMOTIDINE 20 MG TAB PO SCH ×2 (07:48→20:19)
[2017-01-11 08:24] LABS: ALT 33 U/L (21-72); AST 17 U/L (17-59); Alkaline Phosphatase 65 U/L (38-126); Anion Gap 12 mmol/L; Blood Urea Nitrogen 9 mg/dL (9-20); Calcium 8.4 mg/dL (8.4-10.2); Carbon Dioxide 22 mmol/L (22-30); Chloride 106 mmol/L (98-107); Glucose 78 mg/dL (74-99); Non-African American GFR(MDRD) >60 (>60 ml/min/1.73 sqM); Sodium 140 mmol/L (137-145); Total Bilirubin 1.5 mg/dL (0.2-1.3); Total Protein 6.2 g/dL (6.3-8.2)
[2017-01-11] MEDS: HYDROcodone/APAP 5-325MG 1 EACH TAB PO PRN ×2 (12:44→21:35)
[2017-01-11 14:51] LABS: Basophils % (A) 0 %; CH 30.7; CHCM 32.4; Eosinophils # (A) 0.1 k/uL (0-0.7); Eosinophils % (A) 1 %; HCT 45.6 % (39.0-53.0); HDW 2.59; HGB 14.5 gm/dL (13.0-17.5); Luc # (Auto) 0.13; Luc % (Auto) 1; Lymphocytes # (A) 1.4 k/uL (1.0-4.8); Lymphocytes % (A) 12 %; MCH 30.3 pg (25.0-35.0); MCHC 31.9 g/dL (31.0-37.0); MCV 95.1 fL (80.0-100.0); Mean Platelet Volume 8.6; Monocytes # (A) 0.5 k/uL (0-1.0); Monocytes % (A) 4 %; Neutrophils # (A) 9.1 k/uL (1.3-7.7); Neutrophils % (A) 81 %; RDW 13.7 % (11.5-15.5); WBC 11.3 k/uL (3.8-10.6); WBC (Perox) 11.16
--- NOTE | 2017-01-11 17:07 | P.PN ---
Subjective 51-year-old male being seen on rounds this morning. Patient has been up ambulating in the hallway. Patient states is anxious to be discharged. Patient states he tolerated the diet passed gas and had a bowel movement this morning to discuss with infectious diseases recommendations in regards to antibiotics. Infectious disease is recommending a PICC line be placed with Invanz 1 g daily for 21 days. Chinedu-Luong drain serous drainage noted in the bulb .Patient is postop January 09 diagnostic laparoscopy, drainage of an intra- abdominal abscess right lower quadrant and a placement of a Chinedu-Luong drain right lower quadrant for containment intra-abdominal abscess right lower quadrant,phlegmon right lower quadrant. The intraoperative findings include contained intra-abdominal abscess along the right lower quadrant. Involvement of the base of the ascending colon including cecum was described. Concern for risk of malignancy Objective - Vital Signs Vital signs: Vital Signs Temp 98.2 F 01/11/17 07:00 Pulse 78 01/11/17 16:00 Resp 18 01/11/17 16:00 BP 125/72 01/11/17 07:00 Pulse Ox 98 01/11/17 07:00 Intake & Output 01/10/17 01/11/17 01/11/17 18:59 06:59 18:59 Intake Total 300 1450 700 Output Total 1120 Balance 300 1450 -420 Weight 52.617 kg 52.617 kg Intake: Intake, IV Titration 100 1250 700 Amount Piperacillin-Tazobactam 3 50 .375 gm In Dextrose/Water 1 50ml.bag @ 12.5 mls/hr IVPB Q8HR [facility] Rx#: [id number] Sodium Chloride 0.9% 1, 100 1200 700 000 ml @ 100 mls/hr IV . Q10H [facility] Rx#:[id number] Oral 200 200 Output: Urine 1120 Other: Voiding Method Toilet Toilet # Voids 1 - Exam Physical exam Pleasant 51-year-old gentleman up ambulating in the hallway states pain medication effective for pain control denying any nausea or vomiting Lungs essentially clear adequate air movement on room air Heart S1-S2 audible regular Abdomen surgical site no signs of redness dressing dry soft bowel tones present Chinedu-Luong drain in place nondistended nontender Extremities no edema noted - Labs CBC & Chem 7: 01/11/17 07:45 01/11/17 07:45 Labs: Abnormal Lab Results - Last 24 Hours (Table) 01/11/17 01/11/17 Range/Units 07:45 07:45 WBC 11.3 H (3.8-10.6) k/uL Neutrophils # 9.1 H (1.3-7.7) k/uL Total Bilirubin 1.5 H (0.2-1.3) mg/dL Total Protein 6.2 L (6.3-8.2) g/dL Microbiology - Last 24 Hours (Table) 01/09/17 12:30 Anaerobic Culture - Preliminary Abdomen 01/09/17 12:30 Gram Stain - Final Abdomen Wound Culture - Final Escherichia coli Assessment and Plan Plan: Impression Present on admission intermittent abdominal pain along the right lower quadrant onset past several months suspect due to right lower quadrant abscess Diagnostic laparoscopy, drainage of intra-abdominal abscess right lower quadrant , placement of round #19 drain right lower quadrant, done on January 09 Operative findings Phlegmon involving the right lower quadrant with involvement of distal small bowel localized ileus. Operative findings Intra-abdominal contained abscess of the right lower quadrant without visualization of the appendix. Operative findings. Phlegmon involving the cecum and external ascending colon highly suspicious for malignancy. Plan Infectious disease accommodations noted PICC line will be placed in anticipation of Invanz antibiotic daily 21 doses to be started Continue postop surgical care Increase activity Will need an outpatient colonoscopy after complete recovery anticipate next 4-6 weeks Pain control DVT and GI prophylaxis Prepped for probable discharge in the next 24 hours Diet to be advanced The above impression and plan of care have been discussed and directed by signing physician. Yaima Kate nurse practitioner acting as scribe for signing physician.
--- NOTE | 2017-01-11 20:00 | P.PN ---
Progress Note - Text Patient seen and evaluated. He reports improvement of his abdominal pain. He also reports moderate appetite. 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 I reviewed with him that antibiotic management may be either with oral antibiotics versus intravenous antibiotics for best recovery. Potential discharge home pending suggestions from infectious disease regarding antibiotic management. May have regular diet.
--- NOTE | 2017-01-11 20:01 | P.PN ---
Progress Note - Text Patient seen and evaluated this evening. He reports increased energy. He has moderate serosanguineous joint drainage from his ALBIN. Recommendations from infectious disease includes PICC line for at least 3 weeks. He'll likely need oral antibiotics following. I have recommended discharge home pending approval for his IV antibiotics including PICC line placement. Follow-up in the office next week with possible removal of his drain was also reviewed. I reviewed the patient's current care plan in detail for which he demonstrated understanding and is agreeable with plan.
--- NOTE | 2017-01-11 20:51 | P.PN ---
Subjective Principal diagnosis: Abdominal sepsis This is a 51-year-old male who gives history that he started having right lower quadrant pain about one month ago and he continued to get worse. It was only intermittent and came and went. He denies any back pain, no nausea or vomiting, no diarrhea or constipation. The pain continued to worsen and he came into [facility] emergency center on January 08. His white count was 10.9. CAT scan of the abdomen and pelvis showed extensive phlegmon 06 and inflammatory fat stranding in the right lower quadrant with multiple loops of hyperemic bowel adhered to one another. Appendix cannot be from the terminal ileum and surrounding adjacent bowel loops, acute appendicitis is highly suspected with reactive terminal ileitis and adjacent adenopathy. Patient was started on Unasyn and admitted to the [facility]. On January 09 he underwent a diagnostic laparoscopic, drainage of intra-abdominal abscess right lower quadrant and placement of drain with Dr. Hirsch. Operative findings were phlegmon involving the right lower quadrant with involvement of the distal small bowel localized ileus, intra-abdominal contained abscess right lower quadrant without visualization of the appendix, phlegmon involving the cecum and external descending colon highly suspicious for malignancy. Cultures were obtained and are in progress. Aerobic culture showing no organisms and a few WBCs. Dr. Nielson is planning on antibiotics and outpatient colonoscopy in 4-6 weeks. Patient is on clear liquid diet. Patient denies having any nausea, vomiting, diarrhea he denies fever or chills. He does complain of a decreased appetite but it seems to be pain related. He denies any weight loss. Patient states he does not feel any better at this time. Pain seems to be aggravated with movement and now he also has pain on the left side of his abdomen as well.. He is feeling better today. Sitting upright. His had some clear liquids. Denies increasing amounts of abdominal pain. Has been able to walk without severe pain. He is finding going from the laying to the sitting to standing position is the most uncomfortable. Objective - Vital Signs Vital signs: Vital Signs Temp 98.5 F 01/11/17 15:00 Pulse 78 01/11/17 16:00 Resp 18 01/11/17 16:00 BP 146/76 01/11/17 15:00 Pulse Ox 98 01/11/17 15:00 Intake & Output 01/11/17 01/11/17 01/12/17 06:59 18:59 06:59 Intake Total 1450 700 Output Total 1120 Balance 1450 -420 Weight 52.617 kg Intake: Intake, IV Titration 1250 700 Amount Piperacillin-Tazobactam 3 50 .375 gm In Dextrose/Water 1 50ml.bag @ 12.5 mls/hr IVPB Q8HR YAZMIN Rx#: [id number] Sodium Chloride 0.9% 1, 1200 700 000 ml @ 100 mls/hr IV . Q10H YAZMIN Rx#:[id number] Oral 200 Output: Urine 1120 Other: Voiding Method Toilet Toilet # Voids 1 - Exam Gen: This is a 51-year-old male sitting up and appears to be comfortable. HEENT: Head is atraumatic, normocephalic. Pupils equal, round. Sclerae is anicteric. Oral mucous members of the mouth are slightly dry. Dentition is in poor order. No lesions noted. NECK: Supple. No JVD. No lymphadenopathy. No thyromegaly. LUNGS: Clear to auscultation. No wheezes or rhonchi. No intercostal retractions. HEART: Regular rate and rhythm. No murmur. ABDOMEN: Soft. Bowel sounds are present. No masses. ALBIN drain to the right lower abdomen with serosanguineous fluid. Generalized tenderness. EXTREMITIES: No pedal edema. No calf tenderness. Dorsalis pedis is +2 bilaterally. NEUROLOGICAL: Patient is awake, alert and oriented x3. - Labs CBC & Chem 7: 01/11/17 07:45 01/11/17 07:45 Labs: Abnormal Lab Results - Last 24 Hours (Table) 01/11/17 01/11/17 Range/Units 07:45 07:45 WBC 11.3 H (3.8-10.6) k/uL Neutrophils # 9.1 H (1.3-7.7) k/uL Total Bilirubin 1.5 H (0.2-1.3) mg/dL Total Protein 6.2 L (6.3-8.2) g/dL Microbiology - Last 24 Hours (Table) 01/09/17 12:30 Anaerobic Culture - Preliminary Abdomen 01/09/17 12:30 Gram Stain - Final Abdomen Wound Culture - Final Escherichia coli Laboratory Results WBC 11.3 k/uL (3.8-10.6) H 01/11/17 07:45 RBC 4.80 m/uL (4.30-5.90) 01/11/17 07:45 Hgb 14.5 gm/dL (13.0-17.5) 01/11/17 07:45 Hct 45.6 % (39.0-53.0) 01/11/17 07:45 MCV 95.1 fL (80.0-100.0) 01/11/17 07:45 MCH 30.3 pg (25.0-35.0) 01/11/17 07:45 MCHC 31.9 g/dL (31.0-37.0) 01/11/17 07:45 RDW 13.7 % (11.5-15.5) 01/11/17 07:45 Plt Count 325 k/uL (150-450) 01/11/17 07:45 Neutrophils % 81 % 01/11/17 07:45 Lymphocytes % 12 % 01/11/17 07:45 Monocytes % 4 % 01/11/17 07:45 Eosinophils % 1 % 01/11/17 07:45 Basophils % 0 % 01/11/17 07:45 Neutrophils # 9.1 k/uL (1.3-7.7) H 01/11/17 07:45 Lymphocytes # 1.4 k/uL (1.0-4.8) 01/11/17 07:45 Monocytes # 0.5 k/uL (0-1.0) 01/11/17 07:45 Eosinophils # 0.1 k/uL (0-0.7) 01/11/17 07:45 Basophils # 0.0 k/uL (0-0.2) 01/11/17 07:45 Sodium 140 mmol/L (137-145) 01/11/17 07:45 Potassium 4.0 mmol/L (3.5-5.1) 01/11/17 07:45 Chloride 106 mmol/L (98-107) 01/11/17 07:45 Carbon Dioxide 22 mmol/L (22-30) 01/11/17 07:45 Anion Gap 12 mmol/L 01/11/17 07:45 BUN 9 mg/dL (9-20) 01/11/17 07:45 Creatinine 0.73 mg/dL (0.66-1.25) 01/11/17 07:45 Est GFR (MDRD) Af Amer >60 (>60 ml/min/1.73 sqM) 01/11/17 07:45 Est GFR (MDRD) Non-Af >60 (>60 ml/min/1.73 sqM) 01/11/17 07:45 Glucose 78 mg/dL (74-99) 01/11/17 07:45 Calcium 8.4 mg/dL (8.4-10.2) 01/11/17 07:45 Phosphorus 3.2 mg/dL (2.5-4.5) 01/10/17 07:50 Magnesium 1.9 mg/dL (1.6-2.3) 01/10/17 07:50 Total Bilirubin 1.5 mg/dL (0.2-1.3) H 01/11/17 07:45 AST 17 U/L (17-59) 01/11/17 07:45 ALT 33 U/L (21-72) 01/11/17 07:45 Alkaline Phosphatase 65 U/L (38-126) 01/11/17 07:45 Total Protein 6.2 g/dL (6.3-8.2) L 01/11/17 07:45 Albumin 3.5 g/dL (3.5-5.0) 01/11/17 07:45 Amylase 36 U/L (30-110) 01/08/17 16:28 Lipase 236 U/L (23-300) 01/08/17 16:28 Urine Color Yellow 01/08/17 16:28 Urine Appearance Clear (Clear) 01/08/17 16:28 Urine pH 6.0 (5.0-8.0) 01/08/17 16:28 Ur Specific Lyman 1.012 (1.001-1.035) 01/08/17 16:28 Urine Protein Negative (Negative) 01/08/17 16:28 Urine Glucose (UA) Negative (Negative) 01/08/17 16:28 Urine Ketones Negative (Negative) 01/08/17 16:28 Urine Blood Negative (Negative) 01/08/17 16:28 Urine Nitrite Negative (Negative) 01/08/17 16:28 Urine Bilirubin Negative (Negative) 01/08/17 16:28 Urine Urobilinogen <2.0 mg/dL (<2.0) 01/08/17 16:28 Ur Leukocyte Esterase Negative (Negative) 01/08/17 16:28 Microbiology 01/09/17 12:30 Abdomen Anaerobic Culture - Preliminary 01/09/17 12:30 Abdomen Gram Stain - Final 01/09/17 12:30 Abdomen Wound Culture - Final Escherichia coli Assessment and Plan Plan: As noted patient has evidence of the extensive inflammatory process to the right lower quadrant that was drained laparoscopically. Does have the drain in place midline. It is noted has evidence of the extensive tenderness in the right lower quadrant. Is feeling better this evening. Is getting some appetite. Denying any other acute difficulties. He is very anxious and worried about his home life. He is counseled about FMLA, and will discuss this with the discharge team. Antibiotic therapy will be altered to Zosyn giving the data although gram- negative bacilli being seen concerns to pseudomonas. The culture is now come back Escherichia coli has been isolated. It is become evident that the patient is without evidence of insurance. This will complicate his outpatient course of antibiotic therapy. Regardless he is evidence of extensive abscess and will need intravenous therapy. PICC line will be placed. We'll make arrangements for outpatient intravenous antibiotic therapy likely here at the hospital with Invanz 1 dose daily. Social work is attempting for emergency Medicaid which may also use the outpatient course. He reports he is improved at this point in time.
[2017-01-12] MEDS: PIPERACILLIN-TAZOBACTAM 3.375 GM in DEXTROSE/WATER 1 50ML.BAG IVPB SCH ×2 (00:13→08:35)
[2017-01-12] MEDS: HYDROcodone/APAP 5-325MG 1 EACH TAB PO PRN (06:28)
[2017-01-12 07:35] VITALS: RESP 16
[2017-01-12 07:46] LABS: Basophils % (A) 1 %; CH 30.1; CHCM 33.2; Eosinophils # (A) 0.2 k/uL (0-0.7); Eosinophils % (A) 2 %; HCT 42.1 % (39.0-53.0); HDW 2.71; HGB 14.1 gm/dL (13.0-17.5); Luc # (Auto) 0.14; Luc % (Auto) 2; Lymphocytes # (A) 1.4 k/uL (1.0-4.8); Lymphocytes % (A) 17 %; MCH 30.6 pg (25.0-35.0); MCHC 33.5 g/dL (31.0-37.0); MCV 91.2 fL (80.0-100.0); Mean Platelet Volume 6.9; Monocytes # (A) 0.4 k/uL (0-1.0); Monocytes % (A) 5 %; Neutrophils # (A) 6.2 k/uL (1.3-7.7); Neutrophils % (A) 74 %; RBC 4.61 m/uL (4.30-5.90); WBC 8.4 k/uL (3.8-10.6); WBC (Perox) 8.65
[2017-01-12 07:50] LABS: INR 1.1 (<1.2); Prothrombin Time 11.2 sec (9.0-12.0)
[2017-01-12] MEDS: FAMOTIDINE 20 MG TAB PO SCH (08:35)
[2017-01-12] MEDS: SODIUM CHLORIDE 0.9% 1,000 ML IV SCH (08:46)
[2017-01-12 10:51] VITALS: BP 132/99; PULSE 84; TEMP 98.4
--- NOTE | 2017-01-12 11:42 | P.DS ---
Providers Date of admission: 01/08/17 18:20 Expected date of discharge: 01/12/17 Attending physician: Guillermina Nielson Consults: 01/09/17 12:59 Consult Physician Urgent Consulting Provider: Benja Cunningham Reason/Comments: Intra-abdominal abscess Do you want consulting provider notified?: Yes Primary care physician: [place] Hospital Course: A 51-year-old gentleman who presented on the day of admission to the emergency room to be evaluated for chief complaint of developing right lower quadrant pain onset 1 month ago. Patient stated the pain continued to persist became more symptomatic became worse came into the emergency room on January 08 with a white count 10.9. Patient had a CAT scan of the abdomen pelvis it showed extensive phlegmon and inflammatory fat straining into the right lower quadrant with multiple loops with hyperactive bowel adhered to another patient gives no history of colon cancer no past surgical history no significant medical history. Patient has not had a colonoscopy in the past and stated there was no change in bowel habits there was no constipation loose stools no nausea vomiting no unintentional weight loss. Patient described the intermittent abdominal pain as a cramping sensation along the right lower quadrant of the abdomen subsequent the patient was started on IV antibiotics and then on January 09 underwent a diagnostic laparoscopic drainage of an intra abdominal abscess right lower quadrant and a placement of a Chinedu-Luong drain. The intraoperative findings include contained intra-abdominal abscess along the right lower quadrant. Involvement of the base of the ascending colon including cecum was described. Patient was followed throughout the hospitalization with infectious disease Dr. cunningham. Dr. Cunningham recommended that the patient have a PICC line inserted and would need Invanz 1 g daily for 21 days. This was discussed with the patient patient elected to proceed. on the day of discharge patient was up ambulating in the hallway passing gas had a bowel movement white count down to 8.4 hemoglobin 14.1 the Chinedu-Luong drain serous drainage surgical sites benign no redness patient was anxious to be discharged home Impression discharge Present on admission intermittent abdominal pain along the right lower quadrant onset past several months suspect due to right lower quadrant abscess Diagnostic laparoscopy, drainage of intra-abdominal abscess right lower quadrant , placement of round #19 drain right lower quadrant, done on January 09 Operative findings Phlegmon involving the right lower quadrant with involvement of distal small bowel localized ileus. Operative findings Intra-abdominal contained abscess of the right lower quadrant without visualization of the appendix. Operative findings. Phlegmon involving the cecum and external ascending colon final pathology diagnosis no cytologicall malignant cells identified The above impression and plan of care have been discussed and directed by signing physician. Yaima Kate nurse practitioner acting as scribe for signing physician.y Patient Condition at Discharge: Fair Plan - Discharge Summary New Discharge Prescriptions: New Ertapenem [INVanz] 1 gm IVPB Q24H #21 bag HYDROcodone/APAP 5-325MG [[place] 5-325] 1 each PO Q4HR PRN #15 tab PRN Reason: Mild Pain Discharge Medication List Ertapenem [INVanz] 1 gm IVPB Q24H #21 bag 01/11/17 [Rx] HYDROcodone/APAP 5-325MG [[place] 5-325] 1 each PO Q4HR PRN #15 tab 01/12/17 [Rx] Follow up Appointment(s)/Referral(s): Chuy Garza DO [Primary Care Provider] - 1-2 days Guillermina Nielson MD [STAFF PHYSICIAN] - 01/16/17 Activity/Diet/Wound Care/Special Instructions: Chinedu-Luong drain instructions to be provided to patient No lifting anything heavier than 4 pounds May shower IV antibiotics Invanz 1 g daily for 21 days Discharge Disposition: HOME SELF-CARE
[2017-01-12] MEDS ORDERED: LIDOCAINE 2% INJ 20 MG/ML SQ ONE (13:20)
--- NOTE | 2017-01-12 13:47 | IR ---
EXAMINATION TYPE: IR cvc insert >=5 years DATE OF EXAM: 01/12/2017 COMPARISON: NONE CLINICAL HISTORY: Infection Needs long-term intravenous access for antibiotics. PROCEDURE: After informed consent, the skin overlying the left basilic vein was localized with ultrasound and no parth to be compressible and patent. An ultrasound image was obtained and submitted on the patient's c glass. The overlying skin was prepped and draped and Lidocaine was used for local anesthesia. A skin tea was made with a scalpel. Access was gained to the vein under ultrasound guidance with a 21 gau ge needle and a 0.018 inch wire was advanced. Access site was dilated with Peel-Away sheath and cath eter tailored to the appropriate length and advanced such that the distal tip is at the cavoatrial ju nction. Spot image was obtained verifying placement. Catheter was fixed to the skin with suture and a sterile dressing was placed following hemostasis. Catheter was aspirated and flushed with saline. Patient was discharged in stable condition without complication.Maximal barrier technique is utiliz ed. Ultrasound image is documented on the chart. Ultrasound used with sterile technique. Fluoro time and fluoroscopic images submitted to document procedure: 24 intraoperative C-arm images, 0.1 minutes fluoroscopy time IMPRESSION: STATUS POST ULTRASOUND AND FLUOROSCOPIC GUIDED PICC LINE PLACEMENT, READY FOR USE. THIS PROCEDURE WAS PERFORMED BY THE UNDERSIGNED.
--- NOTE | 2017-01-15 17:46 | P.OP ---
Date of Procedure: 01/09/17 Preoperative Diagnosis: Postoperative Diagnosis: Procedure(s) Performed: Implants: Indications for Procedure: Operative Findings: Description of Procedure: SURGEON: CARSON WRIGHT MD MANAGER REVENUE: None. PREOPERATIVE DIAGNOSES: 1. Right lower quadrant abdominal pain. 2. Possible appendicitis. POSTOPERATIVE DIAGNOSES: 1. Right lower quadrant abdominal pain. 2. Contained intra-abdominal periappendiceal abscess involving right lower quadrant with phlegmon. 3. Localized ileus, right lower quadrant. PROCEDURES PERFORMED: 1. Diagnostic laparoscopy. 2. Laparoscopic lysis of adhesions. 3. Drainage of intra-abdominal periappendiceal abscess right lower quadrant 4. Peritoneal lavage 3 L normal saline with placement of round #19 drain at the right lower quadrant. ANESTHESIA: General with 20 mL 0.5% Marcaine with epinephrine. ESTIMATED BLOOD LOSS: 10 mL. SPECIMENS REMOVED: Aerobic and anaerobic cultures, peritoneal fluid cell cytology COMPLICATIONS: None. OPERATIVE FINDINGS: 1. Phlegmon involving the right lower quadrant with involvement of distal small bowel with localized ileus. 2. Intra-abdominal contained periappendiceal abscess of the right lower quadrant without visualization of the appendix. 3. Phlegmon involving the cecum and ascending colon highly suspicious for malignancy. 4. Aerobic and anaerobic cultures including cell cytology obtained for evaluation for malignancy. 5. Recommend colonoscopy for workup of malignancy. INDICATIONS: The patient is a 51-year-old male who presents with worsening right lower quadrant abdominal pain for over 2 days. He reports intermittent right lower quadrant abdominal pain between 2-3 months however. Upon further discussion with his family members, he has a positive history of malignancy. He has not had a colonoscopy. He presented with CT of the abdomen and pelvis demonstrating inflammatory changes of the right lower quadrant without visualization of the appendix. Possible appendicitis cannot be excluded. Diagnostic laparoscopy with possible appendectomy was reviewed. Benefits and risks, including possibility of open technique were described at length. Informed consent was obtained. DESCRIPTION OR PROCEDURE: Patient was brought to the operating room, laid in supine position. After general induction, the abdomen was prepped and draped in standard sterile fashion. Prior to incision, a timeout protocol was confirmed with surgical team regarding patient's name including procedure to be performed. Preoperative medications were given intraoperatively. Additionally, bilateral SCDs including heparin 5000 units was administered. A left upper quadrant incision was made after localizing the skin with anesthetic. A 0 degree 5 mm laparoscopic trocar entry was performed and entered into the peritoneal cavity. The abdomen was insufflated to 15 mmHg of pressure, which he tolerated well. Diagnostic laparoscopy demonstrated no injury to bowel, viscera or mesentery. Localized ileus of the right lower quadrant was identified. A phlegmonous reaction involving the ascending colon, cecum and terminal ileum was identified along the right lower quadrant. A 5 mm port was placed just above the pubis. A separate 5 mm port was placed at the left lateral abdominal wall all under direct visualization. The patient was placed in Trendelenburg position with the right side up. A systematic view within the abdominal cavity was started with the small bowel which was remarkable with the cecum and terminal ileum involved. The gallbladder was unremarkable. The base of the cecum was involved with dense fibrinous reaction involving the phlegmon. The entire appendix was engulfed in the phlegmonous reaction without clear identification of the tip or base. Moderate dissection with lysis of adhesions using blunt dissection was performed along the phlegmonous reaction whereby a contained intra-abdominal abscess was drained from the abdominal cavity over 20 mL. Next, 3 L warm normal saline peritoneal lavage was used to irrigate the abscess cavity. As moderate involvement of the phlegmonous reaction included the terminal ileum , base of the cecum and ascending colon, a proposed right hemicolectomy was reviewed however malignancy could not be excluded at this time. More definitive imaging and testing were needed. Hence a drain placement was proposed with deferred colonoscopy as an outpatient and treatment as interval appendectomy. A round # 19 ALBIN drain was positioned within the abscess cavity and exited via the suprapubic port. A drain stitch of 2-0 nylon was placed. Aerobic including anaerobic cultures and cell cytology were sent for specimen. All instruments and pneumoperitoneum were evacuated from the abdominal cavity. Local anesthetic was infiltrated in all wounds for postop analgesia. Dermabond was applied to the skin after reapproximating the incisions with 4-0 Monocryl as described. At the end of the procedure, needle, sponge, and instrument count was verified correct by technician anatomic pathology. The patient had tolerated the procedure well, was taken to the postanesthesia care unit in stable condition. Intraoperative abdominal films including finding were reviewed with the patient' s family.
== END 2017-01-12 15:25 | disposition home or self-care (01) | DRG 336 ==
LOC: EC 15:42 → 5MS5E 18:20
PROVIDERS: ADMIT Surgery Plastic and Reconstructive Surgery; ATTEND Surgery Plastic and Reconstructive Surgery
PROC: 0DN84ZZ Release Small Intestine, Percutaneous Endoscopic Approach (ICD-10-PCS; 2017-01-09)
PROC: 3E1M38X Irrigation of Peritoneal Cavity using Irrigating Substance, Percutaneous Approach, Diagnostic (ICD-10-PCS; 2017-01-09)
PROC: 0W9G40Z Drainage of Peritoneal Cavity with Drainage Device, Percutaneous Endoscopic Approach (ICD-10-PCS; 2017-01-09)
PROC: B548ZZA Ultrasonography of Superior Vena Cava, Guidance (ICD-10-PCS; 2017-01-12)
PROC: B518ZZA Fluoroscopy of Superior Vena Cava, Guidance (ICD-10-PCS; 2017-01-12)
PROC: 02HV33Z Insertion of Infusion Device into Superior Vena Cava, Percutaneous Approach (ICD-10-PCS; principal; 2017-01-12 13:03)
DX: K35.3 Acute appendicitis with localized peritonitis (principal); K56.7 Ileus, unspecified; F12.90 Cannabis use, unspecified, uncomplicated; Z87.442 Personal history of urinary calculi; K66.0 Peritoneal adhesions (postprocedural) (postinfection)
CPT/HCPCS: 36415; 74000; 74177; 80053; 81003; 82150; 83690; 83735; 84100; 85025; 85610; 87070; 87075; 87077; 87186; 87205; 88108; 88305; 96361; 96365; 99285

== ENCOUNTER 2017-02-14 08:57 | Day surgery (SDC) | payer OTHER ==
[2017-02-13 10:55] VITALS: BMI 32.3
--- NOTE | 2017-02-14 07:52 | P.GSHP ---
History of Present Illness H&P Date: 02/14/17 CHIEF COMPLAINT: Colon screen HISTORY OF PRESENT ILLNESS: The patient is a 51-year-old male who presents for colon screen. Lower endoscopy was offered for further evaluation and management. PAST MEDICAL HISTORY: Please see list. PAST SURGICAL HISTORY: Please see list. MEDICATIONS: Please see list. ALLERGIES: Please see list. SOCIAL HISTORY: No illicit drug use FAMILY HISTORY: No reports of Crohn disease or ulcerative colitis. REVIEW OF ORGAN SYSTEMS: CONSTITUTIONAL: No reports of fevers or chills. PHYSICAL EXAM: VITAL SIGNS: Stable GENERAL: Well-developed pleasant in no acute distress. HEENT: No scleral icterus. Extraocular movements grossly intact. Moist buccal mucosa. NECK: Supple without lymphadenopathy. CHEST: Unlabored respirations. Equal bilateral excursions. CARDIOVASCULAR: Regular rate and rhythm. Distal 2+ pulses. ABDOMEN: Soft, nontender, nondistended. MUSCULOSKELETAL: No clubbing, cyanosis, or edema. ASSESSMENT: 1. Colon screen. PLAN: 1. Recommend proceeding with a lower endoscopy Past Medical History Past Medical History: GERD/Reflux Additional Past Medical History / Comment(s): intra abdominal abscess Jan 2017, states recent elevated blood sugars. History of Any Multi-Drug Resistant Organisms: None Reported Past Surgical History: No Surgical Hx Reported Additional Past Surgical History / Comment(s): diagnostic laparoscopy/lysis of adhesions/drainage intra abdominal periappendiceal abscess Jan 2017,PICC line inserted and removed. Past Anesthesia/Blood Transfusion Reactions: No Reported Reaction Additional Past Anesthesia/Blood Transfusion Reaction / Comment(s): pt never had surgery or been on anesthesia Smoking Status: Never smoker - Past Family History Mother Family Medical History: COPD Brother(s) Family Medical History: COPD Father Family Medical History: COPD Medications and Allergies Home Medications Medication Instructions Recorded Confirmed Type No Known Home Medications [No 02/13/17 02/13/17 History Known Home Medications] Allergies Allergy/AdvReac Type Severity Reaction Status Date / Time No Known Allergies Allergy Verified 02/13/17 10:45
[~2017-02-14 08:57] MED LIST: LACTATED RINGERS 1,000 ML IV SCH
[2017-02-14 09:13] VITALS: TEMP 97.6
[2017-02-14 09:13] LABS: Glucose,Whole Blood 105 mg/dL (75-99)
[2017-02-14] MEDS ORDERED: LIDOCAINE 1% 20 ML VIAL (10MG/ML) FOR IV START INTRADERMA ONE (09:13)
[2017-02-14] MEDS ORDERED: PROPOFOL 10 MG/ML 20 ML VIAL IV ONE (09:22)
[2017-02-14] MEDS ORDERED: LIDOCAINE 1% INJ 10MG/ML (20 ML MDV) ONE (09:22)
--- NOTE | 2017-02-14 09:40 | P.PCN ---
Date of Procedure: 02/14/17 Description of Procedure: PREOPERATIVE DIAGNOSIS: Colonoscopy screening. POSTOPERATIVE DIAGNOSIS: Colonoscopy screening. Diverticulosis, scattered. OPERATION: Colonoscopy to the ileocecal valve and appendiceal orifice. SURGEON: Guillermina Nielson MD. ANESTHESIA: MAC. INDICATIONS: The patient is a 51-year-old male who presents for colonoscopy screening. He has personal history of perforated appendicitis. He also reported left lower quadrant abdominal pain. Benefits and risks were described and informed consent was obtained. DESCRIPTION OF PROCEDURE: The patient had undergone Gatorade, MiraLAX and Dulcolax prep. He had been brought into the operating room and laid in the left lateral decubitus position. After adequate intravenous sedation, the rectum was examined with 2% lidocaine jelly. No external hemorrhoids were encountered. The rectal tone was within normal limits. No lesions were palpated in the rectal vault. An Olympus colonoscope was advanced until the ileocecal valve and appendiceal orifice were clearly viewed. The prep was excellent with clear visualization of the mucosal folds. The scope was removed with visualization of each mucosal fold. Scattered diverticulosis was encountered. No colonic polyps were found. No evidence of focal colitis was found. Retroflexion of the scope demonstrated grade 1 internal hemorrhoids without active bleeding or inflammation. The colon was desufflated. The patient had tolerated the procedure well. Withdrawal time was over 6 minutes. FINDINGS: Internal hemorrhoids, grade 1 No external prolapsed hemorrhoids. No arteriovenous malformations. No adenomatous polyps. No focal colitis. Sigmoid diverticulosis without acute diverticulitis. RECOMMENDATIONS: Lower endoscopy in 10 years, 2026, per screening guidelines. Plan - Discharge Summary New Discharge Prescriptions: No Action No Known Home Medications [No Known Home Medications] Discharge Medication List No Known Home Medications [No Known Home Medications] 02/13/17 [History]
[2017-02-14 09:45] VITALS: RESP 16
[2017-02-14 10:14] VITALS: BP 149/78; PULSE 65
== END 2017-02-14 10:25 | disposition home or self-care (01) ==
LOC: ORWHC2ENDO 08:57
PROVIDERS: ATTEND Surgery Plastic and Reconstructive Surgery
DX: Z12.11 Encounter for screening for malignant neoplasm of colon (principal); K64.0 First degree hemorrhoids; K57.30 Diverticulosis of large intestine without perforation or abscess without bleeding; R10.32 Left lower quadrant pain; K21.9 Gastro-esophageal reflux disease without esophagitis
CPT/HCPCS: J2001; J2704; G0121

== ENCOUNTER → 2017-04-23 | Outpatient (CLI) | payer OTHER ==
--- NOTE | 2017-04-23 19:31 | CT ---
EXAMINATION TYPE: CT abdomen pelvis w con DATE OF EXAM: 04/23/2017 COMPARISON: Yesterday HISTORY: Follow-up for abdominal abscess. Patient being treated with iv antibiotics. CT DLP: 339.50 mGycm Automated exposure control for dose reduction was used. TECHNIQUE: Helical acquisition of images was performed from the lung bases through the pelvis. CONTRAST: Performed without Oral Contrast and with IV Contrast, patient injected with 100 mL of Omnipaque 300. FINDINGS: Lung bases are clear. There is no pleural effusion. Liver spleen pancreas gallbladder appear normal. Bile ducts are not dilated. There is no adrenal mass. Kidneys show satisfactory contrast opacificatio n. There is no hydronephrosis. There is no retroperitoneal adenopathy. There is no ascites. There is a 5 cm area of fat stranding and inflammatory changes in the right lower quadrant that appears medial and inferior to the cecum. There is a small amount of fluid in the right paracolic gutter. There giselle ears to be wall thickening of the distal ileum. The bladder distends smoothly. I see no pelvic mass. I see no bony destructive process. Appendix is n ot identified. IMPRESSION: WALL THICKENING AND INFLAMMATORY CHANGES APPEARS TO RELATE TO ABNORMAL TERMINAL ILEUM THAT IS SIMILAR TO EXAM YESTERDAY. NO DRAINABLE FLUID COLLECTION. NO ABSCESS CAVITY IDENTIFIED.
== END | disposition home or self-care (01) ==
LOC: RADCTMAIN 18:43
PROVIDERS: ATTEND Surgery Plastic and Reconstructive Surgery
DX: K63.89 Other specified diseases of intestine (principal)
CPT/HCPCS: 74177; Q9967

== ENCOUNTER → 2021-10-05 | Outpatient (CLI) | payer OTHER ==
--- NOTE | 2021-10-05 19:04 | US ---
EXAMINATION TYPE: US mass soft tissue chest/back DATE OF EXAM: 10/05/2021 COMPARISON: NONE CLINICAL HISTORY: M25.811 OTHER SPECIFIED JOINT JOINT DISORDER. Right posterior upper back palpable x 1 year per patient. Hasn't noticed change in size. Does not hurt. Area of concern scanned. Superficial hyperechoic oval lesion seen = 1.9 x 2.0 x 0.5 cm. Compression and contralateral images taken. IMPRESSION: 1. Subcutaneous isoechoic area may be a lipoma. Follow-up can be performed as clinically indicated.
== END | disposition home or self-care (01) ==
LOC: RADUSWWP 15:18
PROVIDERS: ATTEND Family Medicine
DX: M25.811 Other specified joint disorders, right shoulder (principal)

== ENCOUNTER → 2024-02-20 | Outpatient (CLI) | payer OTHER ==
--- NOTE | 2024-02-21 13:12 | CT ---
EXAMINATION TYPE: CT soft tissue neck w con DATE OF EXAM: 02/20/2024 COMPARISON: Ultrasound 02/26/2023 HISTORY: 58-year-old male mass on neck. R22.1 LOCALIZED SWELLING MASS LUMP TECHNIQUE: Contiguous axial scanning of the soft tissues of the neck performed with IV Contrast, caryl ent injected with 100 mL of Isovue 300. Coronal/sagittal reconstructions performed. CT DLP: 283 mGycm Automated exposure control for dose reduction was used. FINDINGS: Visualized intracranial structures, orbits and globes, and mastoid air cells appear clear. Mild mucosal thickening posterior left ethmoid air cells. Mucosal retention cyst or polyp measuring 2 .5 cm at the floor of the right maxillary sinus and 9 mm on the left. The nasopharynx is clear. Mild hypertrophy of the bilateral lingual tonsils and bilateral palatine tonsils. The patient is edentulous. The epiglottis and prevertebral soft tissues are satisfactory. Gliotic and subglottic structures as well as the tracheal column and visualized upper lungs appear cl ear. Thyroid gland as well as the submandibular and bilateral parotid glands appear satisfactory. There is a palpable marker placed along the right posterolateral upper neck. Suspect a subcutaneous l ipoma here measuring 2.9 x 1.2 x 2.8 cm (axial image 16 and sagittal image 235). No cervical lymphadenopathy are other suspicious neck masses identified. Bones: Mild to moderate spondylotic change throughout the cervical spine. IMPRESSION: 1. FINDINGS SUGGEST A 2.9 X 1.2 X 2.8 CM SUBCUTANEOUS LIPOMA OVERLYING THE SUPERFICIAL FASCIA ALONG T HE RIGHT POSTEROLATERAL UPPER NECK AT THE PATIENT'S PALPABLE SITE. 2. MILD HYPERTROPHY OF THE BILATERAL LINGUAL AND PALATINE TONSILS. 3. NO CERVICAL LYMPHADENOPATHY OR OTHERWISE ANY SUSPICIOUS NECK MASS IDENTIFIED. 4. A 2.5 CM POLYP OR MUCOSAL RETENTION CYST ALONG THE FLOOR OF THE RIGHT MAXILLARY SINUS. [facility], , 02/21/2024 1:10 PM
== END | disposition home or self-care (01) ==
LOC: RADCTMAIN 13:23
PROVIDERS: ATTEND Family Medicine
DX: R22.1 Localized swelling, mass and lump, neck
CPT/HCPCS: 70491